=== PATIENT | male | born 1970 | race Caucasian/White ===

== ENCOUNTER 2018-08-09 03:40 | Emergency (ER) | payer SELFPAY ==
[~2018-08-09] VITALS: Ht 177.8 cm; Wt 91.0 kg
[2018-08-09] MEDS ORDERED: KETOROLAC 30MG/ML VIAL IV STA (04:13)
[2018-08-09] MEDS ORDERED: SODIUM CHLORIDE 0.9% 1,000 ML IV ONE (04:13)
[2018-08-09 04:56] LABS: BASOPHILS % 0.3 % (0.0-2.0); HEMATOCRIT. 48.1 % (42.0-52.0); HEMOGLOBIN. 16.4 g/dL (14.0-18.0); LYMPHOCYTES % 13.4 % (20.0-50.0); MEAN CORPUSCULAR HEMOGLOBIN 29.3 pg (28.0-32.0); MEAN CORPUSCULAR VOLUME 85.9 fL (80.0-94.0); MEAN PLATELET VOLUME 10.1 fl (7.4-10.4); MONOCYTES % 2.3 % (2.0-8.0); PLATELET 204 x1000/uL (130-400); RED CELL DISTRIBUTION WIDTH 13.3 % (11.6-14.6)
[2018-08-09 05:00] LABS: CHLORIDE 113 mEq/L (98-107)
[2018-08-09 05:15] LABS: PARTIAL THROMBOPLASTIN TIME 21.5 sec (23.4-31.0)
[2018-08-09 07:00] VITALS: BP 127/91
== END 2018-08-09 07:20 | disposition home or self-care (01) ==
LOC: ER 03:40
DX: S00.83XA Contusion of other part of head, initial encounter (principal); H10.213 Acute toxic conjunctivitis, bilateral; F10.129 Alcohol abuse with intoxication, unspecified; Y08.89XA Assault by other specified means, initial encounter; Y93.89 Activity, other specified; Y92.89 Other specified places as the place of occurrence of the external cause; Y99.8 Other external cause status
CPT/HCPCS: 36415; 70450; 70486; 80053; 83690; 85025; 85610; 85730; 86850; 86900; 86901; 96374; 99284; J1885; J7030